=== PATIENT | female | born 1995 | race Caucasian/White ===

== ENCOUNTER 2021-10-03 07:04 | Inpatient (IN) | payer OTHER ==
[2021-10-03] MEDS ORDERED: Lidocaine 1% 50 ML MDV INJECT ONE (07:36)
[2021-10-03] MEDS ORDERED: Acetaminophen 325 MG Tab PO PRN ×2 (07:36→18:59)
[2021-10-03] MEDS ORDERED: Nalbuphine 10 MG/1 ML Vial IVPUSH PRN (07:36)
[2021-10-03] MEDS ORDERED: Ondansetron 4 MG/2 ML SDV IVPUSH PRN (07:36)
[2021-10-03] MEDS ORDERED: Calcium Carbonate 500 MG Tab.Chew PO PRN (07:36)
[2021-10-03] MEDS ORDERED: Sodium Chloride 0.9% 10 ML Syringe FLUSH PRN (07:36)
[2021-10-03] MEDS ORDERED: Oxytocin/Lactated Ringers 10 UNIT/1,000 ML BAG IV SCH ×2 (07:45)
--- NOTE | 2021-10-03 08:25 | PCM.LDHP ---
L&D History of Present Illness - General Date of Service: 10/03/21 Admit Problem/Dx: Patient Status Order with Admit Dx/Problem 10/03/21 07:15 Patient Status [ADT] Routine 10/03/21 07:37 Patient Status [ADT] Routine Admission Diagnosis/Problem Admission Diagnosis/Problem Active labor Source of Information: Patient History Limitations: Reports: No Limitations - History of Present Illness Introduction:: Patient is a 26 y/o at 38 5/7 wks who presents this AM with SROM. Occurred shortly after midnight. Having some mild contractions since. 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 (Approximate): - Past Surgical History HEENT Surgical History: Reports: Adenoidectomy Social & Family History - Tobacco Use Tobacco Use Status *Q: Former Tobacco User - Alcohol Use Alcohol Use History: No - Recreational Drug Use Recreational Drug Use: No H&P Review of Systems - Review of Systems: Review Of Systems: See Below General: Reports: No Symptoms Pulmonary: Reports: No Symptoms Cardiovascular: Reports: No Symptoms Gastrointestinal: Reports: No Symptoms Genitourinary: Reports: No Symptoms Musculoskeletal: Reports: No Symptoms Psychiatric: Reports: No Symptoms Neurological: Reports: No Symptoms L&D Exam - Exam Exam: See Below - Vital Signs Weight: 100.289 kg - OB Specific Contraction Intensity: Mild Movement: Active Heart Tones: Present Heart Tones per Min: 135 Heart Rate (FHR) Variability: Moderate (6-25 bpm) Presentation: Vertex - Croft Score Croft Score Cervix Position: Posterior Croft Score Consistency: Soft Croft Score Effacement: >80% Croft Score Dilation: 3-4 cm Croft Score 's Station: -1 ,0 Croft Score Total: 9 - Exam General: Alert, Oriented, Cooperative Lungs: Clear to Auscultation, Normal Respiratory Effort Cardiovascular: Regular Rate, Regular Rhythm GI/Abdominal Exam: Soft, Non-Tender Genitourinary: Normal external exam Extremities: Normal Inspection Skin: Warm, Dry, Intact - Patient Data Lab Results Last 24 hrs: Laboratory Results - last 24 hr 10/03/21 Range/Units 08:10 WBC 11.19 H (3.98-10.04) K/mm3 RBC 4.53 (3.98-5.22) M/mm3 Hgb 13.9 (11.2-15.7) gm/dl Hct 40.3 (34.1-44.9) % MCV 89.0 (79.4-94.8) fl MCH 30.7 (25.6-32.2) pg MCHC 34.5 (32.2-35.5) g/dl RDW Std Deviation 42.2 (36.4-46.3) fL Plt Count 247 (182-369) K/mm3 MPV 8.3 L (9.4-12.3) fl Result Diagrams: 10/03/21 08:10 - Problem List (1) 38 weeks gestation of SNOMED Code(s): 49526868 ICD Code: Z3A.38 - 38 WEEKS GESTATION OF Status: Acute Current Visit: Yes (2) SROM (spontaneous rupture of membranes) SNOMED Code(s): 415556031 ICD Code: PTE7184 - Status: Acute Current Visit: Yes Problem List Initiated/Reviewed/Updated: Yes Orders Last 24hrs: Active Orders 24 hr Category Date Time Status Patient Status [ADT] Routine ADT 10/03/21 07:37 Active Activity as Tolerated [RC] PFP Care 10/03/21 07:37 Active Communication Order [RC] ASDIRECTED Care 10/03/21 07:37 Active Communication Order [RC] ASDIRECTED Care 10/03/21 07:37 Active Communication Order [RC] ASDIRECTED Care 10/03/21 07:37 Active Communication Order [RC] ASDIRECTED Care 10/03/21 07:37 Active Heart Tones [RC] ASDIRECTED Care 10/03/21 07:38 Active Monitoring [RC] INTERMITTENT Care 10/03/21 07:37 Active Non Stress Test [RC] PER UNIT ROUTINE Care 10/03/21 07:15 Active Notify Provider [RC] ASDIRECTED Care 10/03/21 07:37 Active Notify Provider [RC] PFP Care 10/03/21 07:37 Active Notify Provider [RC] PRN Care 10/03/21 07:37 Active Peripheral IV Care [RC] . 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 [BF] Stat Lab 10/03/21 07:15 Ordered CORONAVIRUS COVID-19 IAN [MOLEC] Stat Lab 10/03/21 07:00 Received RAPID PLASMA REAGIN,RPR [CHEM] Routine Lab 10/03/21 08:10 Received TYPE AND SCREEN [BBK] Stat Lab 10/03/21 08:10 Received Acetaminophen [TylenoL] Med 10/03/21 07:36 Active 650 mg PO Q4H PRN Calcium Carbonate [Tums] Med 10/03/21 07:36 Active 1,000 mg PO Q2H PRN Lactated Ringers [Ringers, Lactated] 1,000 ml Med 10/03/21 07:45 Active IV ASDIRECTED Nalbuphine [Nubain] Med 10/03/21 07:36 Active 10 mg IVPUSH Q2H PRN Ondansetron [Zofran] Med 10/03/21 07:36 Active 4 mg IVPUSH Q4H PRN Oxytocin/Lactated Ringers [Pitocin in LR 10 Units/1,000 Med 10/03/21 07:45 Active ML] 10 unit in 1,000 ml IV .CONTINUOUS Oxytocin/Lactated Ringers [Pitocin in LR 10 Units/1,000 Med 10/03/21 07:45 Active ML] 10 unit in 1,000 ml IV TITRATE Sodium Chloride 0.9% [Saline Flush] Med 10/03/21 07:36 Active 10 ml FLUSH ASDIRECTED PRN Electronic Heart Tones Ext w TOCO [WOMSER] Oth 10/03/21 07:37 Ordered Routine Electronic Heart Tones Internal [WOMSER] Per Unit Oth 10/03/21 07:37 Ordered Routine Peripheral IV Insertion Adult [OM.PC] Routine Oth 10/03/21 07:37 Ordered Resuscitation Status Routine Resus Stat 10/03/21 07:15 Ordered Medication Orders Acetaminophen (Acetaminophen 325 Mg Tab) 650 mg PO Q4H PRN PRN Reason: Fever greater than 100.4 Calcium Carbonate/Glycine (Calcium Carbonate 500 Mg Tab.Chew) 1,000 mg PO Q2H PRN PRN Reason: Indigestion Lactated Ringer's (Ringers, Lactated) 1,000 mls @ 40 mls/hr IV ASDIRECTED KALYANI Oxytocin/Lactated Ringer's (Pitocin In Lr 10 Units/1,000 Ml) 10 unit in 1,000 mls @ 12 mls/hr IV TITRATE KALYANI; Protocol Oxytocin/Lactated Ringer's (Pitocin In Lr 10 Units/1,000 Ml) 10 unit in 1,000 mls @ 500 mls/hr IV .CONTINUOUS KALYANI Nalbuphine HCl (Nalbuphine 10 Mg/1 Ml Vial) 10 mg IVPUSH Q2H PRN PRN Reason: Pain Ondansetron HCl (Ondansetron 4 Mg/2 Ml Sdv) 4 mg IVPUSH Q4H PRN PRN Reason: Nausea/Vomiting Sodium Chloride (Sodium Chloride 0.9% 10 Ml Syringe) 10 ml FLUSH ASDIRECTED PRN PRN Reason: Keep Vein Open Assessment/Plan Comment:: * Labs to be done * GBS negative * Pitocin if needed for augmentation * Pain management per patient preference * Anticipate
[2021-10-03] MEDS: Lactated Ringers 1,000 ML IV SCH ×2 (11:26→14:12)
[2021-10-03] MEDS ORDERED: diphenhydrAMINE 50 MG/ML SDV IVPUSH PRN (11:40)
[2021-10-03] MEDS ORDERED: Bupivacaine/fentaNYL/NS 100 ML Bag EPIDUR PRN (11:40)
[2021-10-03] MEDS ORDERED: fentaNYL 100 MCG/2 ML SDV EPIDUR PRN (11:40)
[2021-10-03] MEDS ORDERED: ePHEDrine 50 MG/ML SDV IVPUSH PRN (11:40)
--- NOTE | 2021-10-03 11:56 | PCM.PREANE ---
Preanesthetic Assessment - Procedure Proposed Procedure: umair - Anesthesia/Transfusion/Family Hx Anesthesia History: Prior Anesthesia Without Reaction Family History of Anesthesia Reaction: No Transfusion History: No Prior Transfusion(s) - Review of Systems General: No Symptoms Pulmonary: No Symptoms Cardiovascular: No Symptoms Gastrointestinal: No Symptoms Neurological: No Symptoms Other: Reports: None - Physical Assessment Vital Signs: Last Vital Signs Temp 99.0 F 10/03/21 07:25 Pulse 87 10/03/21 07:25 Resp 16 10/03/21 07:25 BP 136/91 H 10/03/21 07:25 Pulse Ox 100 10/03/21 07:25 Height: 5 ft 7 in Weight: 100.289 kg ASA Class: 2 Mental Status: Alert & Oriented x3 Airway Class: Mallampati = 1 Dentition: Reports: Normal Dentition Thyro-Mental Finger Breadths: 3 Mouth Opening Finger Breadths: 3 ROM/Head Extension: Full Lungs: Normal Respiratory Effort - Lab Values: Laboratory Last Values WBC 11.19 K/mm3 (3.98-10.04) H 10/03/21 08:10 RBC 4.53 M/mm3 (3.98-5.22) 10/03/21 08:10 Hgb 13.9 gm/dl (11.2-15.7) 10/03/21 08:10 Hct 40.3 % (34.1-44.9) 10/03/21 08:10 MCV 89.0 fl (79.4-94.8) 10/03/21 08:10 MCH 30.7 pg (25.6-32.2) 10/03/21 08:10 MCHC 34.5 g/dl (32.2-35.5) 10/03/21 08:10 RDW Std Deviation 42.2 fL (36.4-46.3) 10/03/21 08:10 Plt Count 247 K/mm3 (182-369) 10/03/21 08:10 MPV 8.3 fl (9.4-12.3) L 10/03/21 08:10 SARS-CoV-2 RNA (IAN) Negative (NEGATIVE) 10/03/21 07:00 Blood Type AB POSITIVE 10/03/21 08:10 Gel Antibody Screen Negative 10/03/21 08:10 - Allergies Allergies/Adverse Reactions: Allergies Allergy/AdvReac Type Severity Reaction Status Date / Time azithromycin Allergy Other Verified 10/03/21 07:45 - Blood Blood Available: No - Acknowledgements Anesthesia Type Planned: Epidural Pt an Appropriate Candidate for the Planned Anesthesia: Yes Alternatives and Risks of Anesthesia Discussed w Pt/Guardian: Yes Pt/Guardian Understands and Agrees with Anesthesia Plan: Yes PreAnesthesia Questionnaire HEENT History: Reports: Other (See Below) Other HEENT History: Wears glasses Cardiovascular History: Reports: None Respiratory History: Reports: None Gastrointestinal History: Reports: Other (See Below) (pyloric stenosis as a baby) 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: Endocrine/Metabolic History: Reports: Obesity/BMI 30+ Oncologic (Cancer) History: Reports: None - Infectious Disease History Infectious Disease History: Reports: Chicken Pox - Past Surgical History HEENT Surgical History: Reports: Adenoidectomy, Oral Surgery Other HEENT Surgeries/Procedures: [place] teeth GI Surgical History: Reports: Other (See Below) Other GI Surgeries/Procedures: Had Plyloric Stenosis surgery at 5 weeks of age - SUBSTANCE USE Tobacco Use Status *Q: Former Tobacco User Tobacco Use Within Last Twelve Months: Cigarettes Second Hand Smoke Exposure: No Days Per Week of Alcohol Use: 0 Recreational Drug Use History: No - HOME MEDS Home Medications: Home Meds No122/Iron/Folic Acid [ Multi Tablet] 1 each PO DAILY 10/03/21 [History] - CURRENT (IN HOUSE) MEDS Current Meds: Current Medications Acetaminophen (Acetaminophen 325 Mg Tab) 650 mg PO Q4H PRN PRN Reason: Fever greater than 100.4 Calcium Carbonate/Glycine (Calcium Carbonate 500 Mg Tab.Chew) 1,000 mg PO Q2H PRN PRN Reason: Indigestion Diphenhydramine HCl (Diphenhydramine 50 Mg/Ml Sdv) 25 mg IVPUSH Q6H PRN PRN Reason: pruritis Stop: 10/04/21 23:00 Ephedrine Sulfate (Ephedrine 50 Mg/Ml Sdv) 5 mg IVPUSH ASDIRECTED PRN PRN Reason: Hypotension Stop: 10/04/21 23:00 Fentanyl (Fentanyl 100 Mcg/2 Ml Sdv) 100 mcg EPIDUR Q3H PRN PRN Reason: Pain Stop: 10/04/21 23:00 Fentanyl/Bupivacaine HCl (Bupivacaine/Fentanyl/Ns 100 Ml Bag) 100 ml EPIDUR ASDIRECTED PRN PRN Reason: Pain Stop: 10/04/21 23:00 Lactated Ringer's (Ringers, Lactated) 1,000 mls @ 40 mls/hr IV ASDIRECTED KALYANI Last Admin: 10/03/21 11:26 Dose: 40 mls/hr Documented by: Oxytocin/Lactated Ringer's (Pitocin In Lr 10 Units/1,000 Ml) 10 unit in 1,000 mls @ 12 mls/hr IV TITRATE KALYANI; Protocol Last Admin: 10/03/21 11:27 Dose: 2 munits/min, 12 mls/hr Documented by: Oxytocin/Lactated Ringer's (Pitocin In Lr 10 Units/1,000 Ml) 10 unit in 1,000 mls @ 500 mls/hr IV .CONTINUOUS KALYANI Nalbuphine HCl (Nalbuphine 10 Mg/1 Ml Vial) 10 mg IVPUSH Q2H PRN PRN Reason: Pain Ondansetron HCl (Ondansetron 4 Mg/2 Ml Sdv) 4 mg IVPUSH Q4H PRN PRN Reason: Nausea/Vomiting Sodium Chloride (Sodium Chloride 0.9% 10 Ml Syringe) 10 ml FLUSH ASDIRECTED PRN PRN Reason: Keep Vein Open Discontinued Medications Lidocaine HCl (Lidocaine 1% 50 Ml Mdv) 20 ml INJECT ONETIME ONE Stop: 10/03/21 07:37
[2021-10-03] MEDS ORDERED: Misoprostol 200 MCG Tab ONE (17:49)
[2021-10-03] MEDS ORDERED: Bupivacaine 0.25% 10 ML SDV ONE (18:00)
[2021-10-03] MEDS ORDERED: Misoprostol 200 MCG Tab PO STA (18:09)
--- NOTE | 2021-10-03 18:12 | PCM.DEL ---
L & D Note - General Info Date of Service: 10/03/21 - Delivery Note Labor: Augmented by Oxytocin Delivery Outcome: Livebirth Delivery Method: Spontaneous Vaginal Delivery-Single Delivery Mode: Spontaneous Presentation: Left Occiput Anterior (FLORENT[place]) Nuchal Cord: None Anesthesia Type: Epidural Amniotic Fluid Description: Clear Episiotomy Type: None Laceration: 1st Degree Placenta: Intact, Spontaneous Cord: 3 Vessels Estimated Blood Loss: 250 Resuscitation Needed: Yes : Bulb Syringe, Stimulated, Warmed, Pitkin Used, Warmer Used Delivery Comments (Free Text/Narrative):: Patient found to be complete and began pushing. With maternal pushing effort head delivered from [place] presentation. No nuchal cord present. With gentle downward traction shoulders and body delivered. Infant placed on maternal abdomen. Cord clamped and cut. Cord blood obtained. Placenta allowed time to separate and expelled intact. Inspection of perineum showed hemostatic labial abrasion. Not repaired - General Info Date of Service: 10/03/21 - Patient Data Vitals - Most Recent: Last Vital Signs Temp 37.2 C 10/03/21 07:25 Pulse 87 10/03/21 07:25 Resp 16 10/03/21 07:25 BP 136/91 H 10/03/21 07:25 Pulse Ox 100 10/03/21 07:25 Weight - Most Recent: 100.289 kg I&O - Last 24 Hours: Intake & Output 10/03/21 10/03/21 10/03/21 06:59 14:59 22:59 Intake Total 1120 Output Total 200 Balance 1120 -200 - Exam Urinary Catheter Total Time: 0Days 2Hours - Problem List & Annotations (1) 38 weeks gestation of SNOMED Code(s): 25168794 Code(s): Z3A.38 - 38 WEEKS GESTATION OF Status: Acute Current Visit: Yes (2) SROM (spontaneous rupture of membranes) SNOMED Code(s): 986849698 Code(s): HDC5709 - Status: Acute Current Visit: Yes (3) Vaginal delivery SNOMED Code(s): 098977141 Code(s): O80 - ENCOUNTER FOR FULL-TERM UNCOMPLICATED DELIVERY Status: Acute Current Visit: Yes - Problem List Review Problem List Initiated/Reviewed/Updated: Yes - My Orders Last 24 Hours: My Active Orders 10/03/21 Breakfast Regular Diet [DIET] 10/03/21 07:15 Resuscitation Status Routine 10/03/21 07:36 Urinary Catheter Assessment [RC] ASDIRECTED Acetaminophen [TylenoL] 650 mg PO Q4H PRN Calcium Carbonate [Tums] 1,000 mg PO Q2H PRN Nalbuphine [Nubain] 10 mg IVPUSH Q2H PRN Ondansetron [Zofran] 4 mg IVPUSH Q4H PRN Sodium Chloride 0.9% [Saline Flush] 10 ml FLUSH ASDIRECTED PRN 10/03/21 07:37 Patient Status [ADT] Routine Activity as Tolerated [RC] PFP Communication Order [RC] ASDIRECTED Communication Order [RC] ASDIRECTED Communication Order [RC] ASDIRECTED Communication Order [RC] ASDIRECTED Monitoring [RC] INTERMITTENT Notify Provider [RC] ASDIRECTED Notify Provider [RC] PFP Notify Provider [RC] PRN Electronic Heart Tones Ext w TOCO [WOMSER] Routine Electronic Heart Tones Internal [WOMSER] Per Unit Routine Peripheral IV Insertion Adult [OM.PC] Routine 10/03/21 07:38 Heart Tones [RC] ASDIRECTED Peripheral IV Care [RC] Q4HR Up ad Gwen [RC] ASDIRECTED 10/03/21 07:39 Pump Management, Intrathecal [RC] ASDIRECTED 10/03/21 07:45 Lactated Ringers [Ringers, Lactated] 1,000 ml IV ASDIRECTED Oxytocin/Lactated Ringers [Pitocin in LR 10 Units/1,000 ML] 10 unit in 1,000 ml IV .CONTINUOUS Oxytocin/Lactated Ringers [Pitocin in LR 10 Units/1,000 ML] 10 unit in 1,000 ml IV TITRATE 10/03/21 08:10 RAPID PLASMA REAGIN,RPR [CHEM] Routine 10/03/21 18:09 miSOPROStoL [Cytotec] 600 mcg PO NOW STA 10/03/21 18:10 Patient Status Manage Transfer [TRANSFER] Routine - Assessment Assessment:: PPD#0 - Plan Plan:: * Routine cares * Breast feeding * Discharge home in 2 days
[2021-10-03] MEDS ORDERED: Witch Hazel Medicated Pads 40/Jar TOP PRN (18:59)
[2021-10-03] MEDS ORDERED: Docusate Sodium 100 MG Cap PO PRN (18:59)
[2021-10-03] MEDS ORDERED: Benzocaine/Menthol 20%-0.5% Spray 78 GM Cannister TOP PRN (18:59)
[2021-10-04] MEDS: Ibuprofen 600 MG Tab PO PRN ×3 (00:29→20:12)
--- NOTE | 2021-10-04 07:15 | PCM.PNPP ---
- General Info Date of Service: 10/04/21 Functional Status: Reports: Pain Controlled, Tolerating Diet, Ambulating, Urinating - Review of Systems General: Reports: No Symptoms Pulmonary: Reports: No Symptoms Cardiovascular: Reports: No Symptoms Gastrointestinal: Reports: No Symptoms Genitourinary: Reports: No Symptoms Musculoskeletal: Reports: No Symptoms Neurological: Reports: No Symptoms - General Info Date of Service: 10/04/21 - Patient Data Vital Signs - Most Recent: Last Vital Signs Temp 36.4 C 10/04/21 05:07 Pulse 84 10/04/21 05:07 Resp 16 10/04/21 05:07 BP 110/63 10/04/21 05:07 Pulse Ox 98 10/04/21 05:07 Weight - Most Recent: 100.289 kg I&O - Last 24 Hours: Intake & Output 10/03/21 10/04/21 10/04/21 22:59 06:59 14:59 Intake Total 3000 Output Total 322 Balance 2678 Lab Results - Last 24 Hours: Laboratory Results - last 24 hr 10/03/21 10/03/21 10/03/21 Range/Units 07:00 08:10 08:10 WBC 11.19 H (3.98-10.04) K/mm3 RBC 4.53 (3.98-5.22) M/mm3 Hgb 13.9 (11.2-15.7) gm/dl Hct 40.3 (34.1-44.9) % MCV 89.0 (79.4-94.8) fl MCH 30.7 (25.6-32.2) pg MCHC 34.5 (32.2-35.5) g/dl RDW Std Deviation 42.2 (36.4-46.3) fL Plt Count 247 (182-369) K/mm3 MPV 8.3 L (9.4-12.3) fl RPR (NONREACTIVE) SARS-CoV-2 RNA (IAN) Negative (NEGATIVE) Blood Type AB POSITIVE Gel Antibody Screen Negative 10/03/21 Range/Units 08:10 WBC (3.98-10.04) K/mm3 RBC (3.98-5.22) M/mm3 Hgb (11.2-15.7) gm/dl Hct (34.1-44.9) % MCV (79.4-94.8) fl MCH (25.6-32.2) pg MCHC (32.2-35.5) g/dl RDW Std Deviation (36.4-46.3) fL Plt Count (182-369) K/mm3 MPV (9.4-12.3) fl RPR Non-reactive (NONREACTIVE) SARS-CoV-2 RNA (IAN) (NEGATIVE) Blood Type Gel Antibody Screen Med Orders - Current: Current Medications Acetaminophen (Acetaminophen 325 Mg Tab) 650 mg PO Q4H PRN PRN Reason: mild pain or fever Benzocaine/Menthol (Benzocaine/Menthol 20%-0.5% Milton 78 Gm Cannister) 0 gm TOP ASDIRECTED PRN PRN Reason: Perineal Comfort Measure Last Admin: 10/03/21 20:42 Dose: 1 canister Documented by: Docusate Sodium (Docusate Sodium 100 Mg Cap) 100 mg PO BID PRN PRN Reason: Constipation Ibuprofen (Ibuprofen 600 Mg Tab) 600 mg PO Q4H PRN PRN Reason: Mild pain or fever Last Admin: 10/04/21 00:29 Dose: 600 mg Documented by: Lisandra Licona (Lisandra Licona Medicated Pads 40/Jar) 1 pad TOP ASDIRECTED PRN PRN Reason: Perineal Comfort Measure Last Admin: 10/03/21 20:42 Dose: 1 container Documented by: Discontinued Medications Acetaminophen (Acetaminophen 325 Mg Tab) 650 mg PO Q4H PRN PRN Reason: Fever greater than 100.4 Calcium Carbonate/Glycine (Calcium Carbonate 500 Mg Tab.Chew) 1,000 mg PO Q2H PRN PRN Reason: Indigestion Diphenhydramine HCl (Diphenhydramine 50 Mg/Ml Sdv) 25 mg IVPUSH Q6H PRN PRN Reason: pruritis Stop: 10/04/21 23:00 Ephedrine Sulfate (Ephedrine 50 Mg/Ml Sdv) 5 mg IVPUSH ASDIRECTED PRN PRN Reason: Hypotension Stop: 10/04/21 23:00 Fentanyl (Fentanyl 100 Mcg/2 Ml Sdv) 100 mcg EPIDUR Q3H PRN PRN Reason: Pain Stop: 10/04/21 23:00 Last Admin: 10/03/21 13:48 Dose: 100 mcg Documented by: Fentanyl/Bupivacaine HCl (Bupivacaine/Fentanyl/Ns 100 Ml Bag) 100 ml EPIDUR ASDIRECTED PRN PRN Reason: Pain Stop: 10/04/21 23:00 Last Admin: 10/03/21 13:49 Dose: 100 ml Documented by: Lactated Ringer's (Ringers, Lactated) 1,000 mls @ 40 mls/hr IV ASDIRECTED KALYANI Last Admin: 10/03/21 14:12 Dose: 40 mls/hr Documented by: Oxytocin/Lactated Ringer's (Pitocin In Lr 10 Units/1,000 Ml) 10 unit in 1,000 mls @ 12 mls/hr IV TITRATE KALYANI; Protocol Last Titration: 10/03/21 17:42 Dose: 166.5 munits/min, 999 mls/hr Documented by: Oxytocin/Lactated Ringer's (Pitocin In Lr 10 Units/1,000 Ml) 10 unit in 1,000 mls @ 500 mls/hr IV .CONTINUOUS KALYANI Last Admin: 10/03/21 18:31 Dose: 500 mls/hr Documented by: Lidocaine HCl (Lidocaine 1% 50 Ml Mdv) 20 ml INJECT ONETIME ONE Stop: 10/03/21 07:37 Last Admin: 10/03/21 19:31 Dose: Not Given Documented by: Misoprostol (Misoprostol 200 Mcg Tab) Confirm Administered Dose 600 mcg .ROUTE .STK-MED ONE Stop: 10/03/21 17:50 Last Admin: 10/03/21 17:50 Dose: 600 mcg Documented by: Misoprostol (Misoprostol 200 Mcg Tab) 600 mcg PO NOW STA Stop: 10/03/21 18:10 Last Admin: 10/03/21 19:30 Dose: Not Given Documented by: Nalbuphine HCl (Nalbuphine 10 Mg/1 Ml Vial) 10 mg IVPUSH Q2H PRN PRN Reason: Pain Ondansetron HCl (Ondansetron 4 Mg/2 Ml Sdv) 4 mg IVPUSH Q4H PRN PRN Reason: Nausea/Vomiting Sodium Chloride (Sodium Chloride 0.9% 10 Ml Syringe) 10 ml FLUSH ASDIRECTED PRN PRN Reason: Keep Vein Open - Interaction Disposition, : in Room with Family Interaction: Holding Infant Feeding: Attempted ; Nursed Fair/Poor Support Person: , Sister - Recovery Exam Fundal Tone: Firm Fundal Level: 1 Fingerbreadths Below Umbilicus Fundal Placement: Midline Lochia Amount: Small Lochia Color: Rubra/Red Perineum Description: Other (see below) Other Perinuem Description: 1st degree labial with no repair Episiotomy/Laceration: Approximated Bladder Status: Voiding - Exam General: Alert, Oriented, Cooperative GI/Abdominal Exam: Soft, Non-Tender - Problem List & Annotations (1) 38 weeks gestation of SNOMED Code(s): 02219475 Code(s): Z3A.38 - 38 WEEKS GESTATION OF Status: Acute Current Visit: Yes (2) SROM (spontaneous rupture of membranes) SNOMED Code(s): 231994208 Code(s): TDL1477 - Status: Acute Current Visit: Yes (3) Vaginal delivery SNOMED Code(s): 894385763 Code(s): O80 - ENCOUNTER FOR FULL-TERM UNCOMPLICATED DELIVERY Status: Acute Current Visit: Yes - Problem List Review Problem List Initiated/Reviewed/Updated: Yes - My Orders Last 24 Hours: My Active Orders 10/03/21 07:15 Resuscitation Status Routine 10/03/21 Dinner Regular Diet [DIET] 10/03/21 18:59 Acetaminophen [TylenoL] 650 mg PO Q4H PRN Benzocaine/Menthol [Dermoplast Pain Relief 20%-0.5% Milton] See Dose Instructions TOP ASDIRECTED PRN Docusate Sodium [Colace] 100 mg PO BID PRN Ibuprofen [Motrin] 600 mg PO Q4H PRN witch Sigifredo [Tucks] 1 pad TOP ASDIRECTED PRN Heat Therapy [OM.PC] PRN 10/03/21 18:59 Activity as Tolerated [RC] PER UNIT ROUTINE Vital Signs [RC] ,,, Assess Lochia [WOMSER] Per Unit Routine Assess Uterine Involution [WOMSER] Per Unit Routine Breast Pump [WOMSER] Per Unit Routine Ice Therapy [OM.PC] Per Unit Routine Perineal Care [OM.PC] Per Unit Routine Peripheral IV Discontinue [OM.PC] Routine Sitz Bath [OM.PC] Per Unit Routine 10/04/21 18:59 Heat Therapy [OM.PC] PRN - Assessment Assessment:: PPD#1 - Plan Plan:: * Routine cares * Breast feeding * Discharge home tomorrow
--- NOTE | 2021-10-04 07:55 | PCM48HPAN ---
Post Anesthesia Note - EVALUATION WITHIN 48HRS OF ANESTHETIC Vital Signs in Normal Range: Yes Patient Participated in Evaluation: Yes Respiratory Function Stable: Yes Airway Patent: Yes Cardiovascular Function Stable: Yes Hydration Status Stable: Yes Pain Control Satisfactory: Yes Nausea and Vomiting Control Satisfactory: Yes Mental Status Recovered: Yes Vital Signs: Last Vital Signs Temp 36.4 C 10/04/21 05:07 Pulse 84 10/04/21 05:07 Resp 16 10/04/21 05:07 BP 110/63 10/04/21 05:07 Pulse Ox 98 10/04/21 05:07
--- NOTE | 2021-10-05 03:38 | PCM.DCSUM1 ---
Discharge Summary - Discharge Data Discharge Date: 10/05/21 Discharge Disposition: Home, Self-Care 01 Condition: Good - Referral to Home Health Primary Care Physician: PCP None - Discharge Diagnosis/Problem(s) (1) 38 weeks gestation of SNOMED Code(s): 68096352 ICD Code: Z3A.38 - 38 WEEKS GESTATION OF Status: Acute Current Visit: Yes (2) SROM (spontaneous rupture of membranes) SNOMED Code(s): 704177750 ICD Code: [id number] - Status: Acute Current Visit: Yes (3) Vaginal delivery SNOMED Code(s): 715292159 ICD Code: O80 - ENCOUNTER FOR FULL-TERM UNCOMPLICATED DELIVERY Status: Acute Current Visit: Yes - Patient Summary/Data Complications: None Consults: None Recommended Follow-up Testing/Procedures: Follow up in 3 weeks for check Hospital Course: 26 y/o at 38 5/7 wks presented with SROM. Progressed well to complete dilation and underwent an uncomplicated . See delivery note. did well and was discharged home on PPD#2 - Patient Instructions Diet: Regular Diet as Tolerated Activity: As Tolerated Activity, Other: pelvic rest for 6 weeks Driving: May Drive Today Showering/Bathing: May Shower Showering/Bathing, Other: may Bathe Notify Provider of: Fever, Increased Pain, Swelling and Redness, Drainage, Nausea and/or Vomiting - Discharge Plan *PRESCRIPTION DRUG MONITORING PROGRAM REVIEWED*: No *COPY OF PRESCRIPTION DRUG MONITORING REPORT IN PATIENT REINALDO: No Home Medications: Home Meds No122/Iron/Folic Acid [ Multi Tablet] 1 each PO DAILY 10/03/21 [History] Docusate Sodium [Colace] 100 mg PO BID PRN cap 10/05/21 [Rx] Ibuprofen [Motrin] 600 mg PO Q4H PRN tablet 10/05/21 [Rx] Patient Handouts: and Breast Care, Care After Vaginal Delivery Referrals: Breanna Niño MD [Family Provider] - (3 weeks for check ) - Discharge Summary/Plan Comment DC Time >30 min.: No Total # of Minutes for Discharge Time: 15 - Patient Data Vitals - Most Recent: Last Vital Signs Temp 36.8 C 10/04/21 20:11 Pulse 88 10/04/21 20:11 Resp 16 10/04/21 20:11 BP 122/64 10/04/21 20:11 Pulse Ox 98 10/04/21 20:11 Weight - Most Recent: 100.289 kg Med Orders - Current: Current Medications Acetaminophen (Acetaminophen 325 Mg Tab) 650 mg PO Q4H PRN PRN Reason: mild pain or fever Benzocaine/Menthol (Benzocaine/Menthol 20%-0.5% [place] 78 Gm Cannister) 0 gm TOP ASDIRECTED PRN PRN Reason: Perineal Comfort Measure Last Admin: 10/03/21 20:42 Dose: 1 canister Documented by: Docusate Sodium (Docusate Sodium 100 Mg Cap) 100 mg PO BID PRN PRN Reason: Constipation Last Admin: 10/04/21 20:12 Dose: 100 mg Documented by: Ibuprofen (Ibuprofen 600 Mg Tab) 600 mg PO Q4H PRN PRN Reason: Mild pain or fever Last Admin: 10/04/21 20:12 Dose: 600 mg Documented by: Lisandra Licona (Witch Monae Medicated Pads 40/Jar) 1 pad TOP ASDIRECTED PRN PRN Reason: Perineal Comfort Measure Last Admin: 10/03/21 20:42 Dose: 1 container Documented by: Discontinued Medications Acetaminophen (Acetaminophen 325 Mg Tab) 650 mg PO Q4H PRN PRN Reason: Fever greater than 100.4 Bupivacaine HCl (Bupivacaine 0.25% 10 Ml Sdv) 10 ml .ROUTE .STK-MED ONE Stop: 10/03/21 18:01 Calcium Carbonate/Glycine (Calcium Carbonate 500 Mg Tab.Chew) 1,000 mg PO Q2H PRN PRN Reason: Indigestion Diphenhydramine HCl (Diphenhydramine 50 Mg/Ml Sdv) 25 mg IVPUSH Q6H PRN PRN Reason: pruritis Stop: 10/04/21 23:00 Ephedrine Sulfate (Ephedrine 50 Mg/Ml Sdv) 5 mg IVPUSH ASDIRECTED PRN PRN Reason: Hypotension Stop: 10/04/21 23:00 Fentanyl (Fentanyl 100 Mcg/2 Ml Sdv) 100 mcg EPIDUR Q3H PRN PRN Reason: Pain Stop: 10/04/21 23:00 Last Admin: 10/03/21 13:48 Dose: 100 mcg Documented by: Fentanyl/Bupivacaine HCl (Bupivacaine/Fentanyl/Ns 100 Ml Bag) 100 ml EPIDUR ASDIRECTED PRN PRN Reason: Pain Stop: 10/04/21 23:00 Last Admin: 10/03/21 13:49 Dose: 100 ml Documented by: Lactated Ringer's (Ringers, Lactated) 1,000 mls @ 40 mls/hr IV ASDIRECTED KALYANI Last Admin: 10/03/21 14:12 Dose: 40 mls/hr Documented by: Oxytocin/Lactated Ringer's (Pitocin In Lr 10 Units/1,000 Ml) 10 unit in 1,000 mls @ 12 mls/hr IV TITRATE KALYANI; Protocol Last Titration: 10/03/21 17:42 Dose: 166.5 munits/min, 999 mls/hr Documented by: Oxytocin/Lactated Ringer's (Pitocin In Lr 10 Units/1,000 Ml) 10 unit in 1,000 mls @ 500 mls/hr IV .CONTINUOUS KALYANI Last Admin: 10/03/21 18:31 Dose: 500 mls/hr Documented by: Lidocaine HCl (Lidocaine 1% 50 Ml Mdv) 20 ml INJECT ONETIME ONE Stop: 10/03/21 07:37 Last Admin: 10/03/21 19:31 Dose: Not Given Documented by: Misoprostol (Misoprostol 200 Mcg Tab) Confirm Administered Dose 600 mcg .ROUTE .STK-MED ONE Stop: 10/03/21 17:50 Last Admin: 10/03/21 17:50 Dose: 600 mcg Documented by: Misoprostol (Misoprostol 200 Mcg Tab) 600 mcg PO NOW STA Stop: 10/03/21 18:10 Last Admin: 10/03/21 19:30 Dose: Not Given Documented by: Nalbuphine HCl (Nalbuphine 10 Mg/1 Ml Vial) 10 mg IVPUSH Q2H PRN PRN Reason: Pain Ondansetron HCl (Ondansetron 4 Mg/2 Ml Sdv) 4 mg IVPUSH Q4H PRN PRN Reason: Nausea/Vomiting Sodium Chloride (Sodium Chloride 0.9% 10 Ml Syringe) 10 ml FLUSH ASDIRECTED PRN PRN Reason: Keep Vein Open
== END 2021-10-05 09:35 | disposition home or self-care (01) | DRG 807 ==
LOC: JD.OBCHECK 07:04 → JD.OB 07:07 → JD.OBCHECK 07:27 → JD.OB 07:37 → OBSVTOIN 17:41 → JD.OB 17:42
PROVIDERS: ADMIT Obstetrics & Gynecology; ATTEND Obstetrics & Gynecology
PROC: 10E0XZZ Delivery of Products of Conception, External Approach (ICD-10-PCS; principal; 2021-10-03)
PROC: 10907ZC Drainage of Amniotic Fluid, Therapeutic from Products of Conception, Via Natural or Artificial Opening (ICD-10-PCS; 2021-10-03)
PROC: 0HQ9XZZ Repair Perineum Skin, External Approach (ICD-10-PCS; 2021-10-03)
PROC: 3E0R3BZ Introduction of Anesthetic Agent into Spinal Canal, Percutaneous Approach (ICD-10-PCS; 2021-10-03)
DX: O99.214 Obesity complicating childbirth (principal); Z37.0 Single live birth; E66.9 Obesity, unspecified; Z3A.38 38 weeks gestation of pregnancy; Z88.1 Allergy status to other antibiotic agents; Z87.891 Personal history of nicotine dependence; Z20.822 Contact with and (suspected) exposure to COVID-19
CPT/HCPCS: 01967; 36415; 51702; 59025; 59409; 85027; 86592; 86850; 86900; 86901; A9270-GY; J2590; J3010; J3490; J7120; U0002